=== PATIENT | female | born 1975 | race Caucasian/White ===

== ENCOUNTER → 2019-01-24 08:23 | Outpatient (CLI) | payer OTHER, SELFPAY ==
[2019-01-24 09:20] LABS: Add Manual Diff / Slide Review NO; Basophils Absolute Auto 0 /uL (0-100); Basophils Percent Auto 0.7 % (0-2); Eosinophils Absolute Auto 100 /uL (0-450); Eosinophils Percent Auto 1.2 % (2-4); Hematocrit 41.9 % (36-46); Hemoglobin 13.9 g/dL (12.0-16.0); Lymphocytes Absolute Auto 2000 /uL (1100-4500); Lymphocytes Percent Auto 34.5 % (25-40); Mean Corpuscular HGB Conc 33.2 % (30-36); Mean Corpuscular Hemoglobin 31.9 PG (26-34); Mean Corpuscular Volume 96.1 fL (80-100); Monocytes Absolute Auto 500 /uL (0-900); Monocytes Percent Auto 8.7 % (3-14); Neutrophils Absolute Auto 3100 /uL (1500-7000); Neutrophils Percent Auto 54.9 % (50-75); Platelet Count 283 X10^3/uL (150-400); Red Blood Cell Count 4.37 X10^6/uL (4.0-5.2); Red Cell Distribution Width 13.3 % (11.6-14.8); White Blood Cell Count 5.7 X10^3/uL (4.5-11.0)
[2019-01-24 09:49] LABS: Alanine Aminotransferase 26 IU/L (9-52); Albumin 4.3 g/dL (3.5-5.0); Albumin Globulin Ratio 1.4 (1.0-2.8); Alkaline Phosphatase 47 U/L (38-126); Aspartate Aminotransferase 23 IU/L (14-36); BUN Creatinine Ratio 25.7 (6-22); Bilirubin Total 0.5 mg/dL (0.2-1.3); Blood Urea Nitrogen 18 mg/dL (7-17); Calcium 8.8 mg/dL (8.4-10.2); Carbon Dioxide 28 mmol/L (22-32); Chloride 101 mmol/L (98-107); Cholesterol 199 mg/dL (140-199); Estimated Glomerular Filt Rate > 60.0 mL/min (>60); Globulin 3.1 g/dL (1.7-4.1); Glucose 97 mg/dL (70-100); HDL Cholesterol 57 mg/dL (40-60); HEMOLYSIS < 15 (0-50); LDL Cholesterol Calculated 124 mg/dL (<100); Potassium 4.4 mmol/L (3.4-5.1); Sodium 138 mmol/L (137-145); Total Protein 7.4 g/dL (6.3-8.2); Triglycerides 92 mg/dL (35-150)
[2019-01-24 10:18] LABS: TSH w/ Reflex to FT4 2.24 uIU/mL (0.47-4.68)
== END ==
PROVIDERS: PCP Family Medicine; Visit Provider Family Medicine
DX: Z01.419 Encounter for gynecological examination (general) (routine) without abnormal findings (principal); Z13.6 Encounter for screening for cardiovascular disorders; Z00.00 Encounter for general adult medical examination without abnormal findings
CPT/HCPCS: 36415; 80053; 80061; 84443; 85025

== ENCOUNTER → 2019-01-25 09:06 | Outpatient (CLI) | payer OTHER, SELFPAY ==
--- NOTE | 2019-01-25 | DI.MG.S_ITS ---
BILATERAL DIGITAL SCREENING MAMMOGRAM 3D/2D WITH CAD: 01/25/2019 CLINICAL: Routine screening. Family history of breast cancer. Comparison is made to exams dated: 01/21/2018 mammogram, 01/13/2017 mammogram, and 12/05/2015 mammogram - [facility]. The tissue of both breasts is heterogeneously dense. This may lower the sensitivity of mammography. Current study was also evaluated with a Computer Aided Detection (CAD) system. No significant masses, calcifications, or other findings are seen in either breast. There has been no significant interval change. IMPRESSION: NEGATIVE There is no mammographic evidence of malignancy. A 1 year screening mammogram is recommended. This exam was interpreted at Station ID: [id number]. NOTE: For mammograms, a report in lay terms will be sent to the patient. Approximately 15% of breast malignancies will not be visualized mammographically. In the management of a palpable breast mass, a negative mammogram must not discourage biopsy of a clinically suspicious lesion. Electronically Signed By: David ered/barak:01/26/2019 08:00:53 letter sent: Normal Exam ACR BI-RADS Category 1: Negative 3341F
== END ==
PROVIDERS: PCP Family Medicine; Visit Provider Family Medicine
DX: Z12.31 Encounter for screening mammogram for malignant neoplasm of breast (principal); Z80.3 Family history of malignant neoplasm of breast
CPT/HCPCS: 77063; 77067

== ENCOUNTER 2019-11-09 18:15 | Emergency (ER) | payer OTHER, BC, SELFPAY ==
[2019-11-09 18:22] VITALS: BP 169/98; PULSE 85; RESP 18; TEMP 36.4; O2SAT 99
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
[2019-11-09] MEDS: KETOROLAC 60 MG/2 ML VIAL 30 MG IM (20:05)
[2019-11-09 20:13] VITALS: BP 145/100; PULSE 79; O2SAT 97
== END 2019-11-09 20:14 | disposition home or self-care (01) ==
PROVIDERS: Emergency Provider Emergency Medicine; PCP Family Medicine
DX: S16.1XXA Strain of muscle, fascia and tendon at neck level, initial encounter (principal); S13.4XXA Sprain of ligaments of cervical spine, initial encounter; M25.512 Pain in left shoulder; M62.830 Muscle spasm of back; V89.2XXA Person injured in unspecified motor-vehicle accident, traffic, initial encounter
CPT/HCPCS: 96372; 99282; 99283; J1885

== ENCOUNTER → 2020-06-05 17:01 | Outpatient (CLI) | payer OTHER, SELFPAY ==
--- NOTE | 2020-06-05 | DI.MG.S_ITS ---
BILATERAL DIGITAL SCREENING MAMMOGRAM 3D/2D WITH CAD: 06/05/2020 CLINICAL: Routine screening. Family history of breast cancer. Comparison is made to exams dated: 01/25/2019 mammogram, 01/21/2018 mammogram, and 01/13/2017 mammogram - [facility]. The tissue of both breasts is heterogeneously dense. This may lower the sensitivity of mammography. Current study was also evaluated with a Computer Aided Detection (CAD) system. No significant masses, calcifications, or other findings are seen in either breast. There has been no significant interval change. IMPRESSION: NEGATIVE There is no mammographic evidence of malignancy. A 1 year screening mammogram is recommended. This exam was interpreted at Station ID: [id number]. NOTE: For mammograms, a report in lay terms will be sent to the patient. Approximately 15% of breast malignancies will not be visualized mammographically. In the management of a palpable breast mass, a negative mammogram must not discourage biopsy of a clinically suspicious lesion. Electronically Signed By: Cory molina/barak:06/06/2020 08:13:24 letter sent: Normal Exam ACR BI-RADS Category 1: Negative 3341F
== END ==
PROVIDERS: PCP Family Medicine; Referring Provider Family Medicine; Visit Provider Family Medicine
DX: Z12.31 Encounter for screening mammogram for malignant neoplasm of breast (principal); Z80.3 Family history of malignant neoplasm of breast
CPT/HCPCS: 77063; 77067

== ENCOUNTER → 2021-03-15 08:49 | Outpatient (CLI) | payer OTHER, SELFPAY ==
[2021-03-15 09:58] LABS: Add Manual Diff / Slide Review NO; Basophils Absolute Auto 0 /uL (0-100); Basophils Percent Auto 0.5 % (0-2); Eosinophils Absolute Auto 100 /uL (0-450); Eosinophils Percent Auto 1.5 % (2-4); Hematocrit 40.3 % (36-46); Hemoglobin 13.5 g/dL (12.0-16.0); Lymphocytes Absolute Auto 2100 /uL (1100-4500); Lymphocytes Percent Auto 34.9 % (25-40); Mean Corpuscular HGB Conc 33.6 % (30-36); Mean Corpuscular Hemoglobin 31.7 PG (26-34); Mean Corpuscular Volume 94.4 fL (80-100); Monocytes Absolute Auto 400 /uL (0-900); Monocytes Percent Auto 7.3 % (3-14); Neutrophils Absolute Auto 3400 /uL (1500-7000); Neutrophils Percent Auto 55.8 % (50-75); Platelet Count 261 X10^3/uL (150-400); Red Blood Cell Count 4.27 X10^6/uL (4.0-5.2); Red Cell Distribution Width 13.4 % (11.6-14.8); White Blood Cell Count 6.2 X10^3/uL (4.5-11.0)
[2021-03-15 10:50] LABS: Alanine Aminotransferase 19 IU/L (<35); Albumin Globulin Ratio 1.3 (1.0-2.8); Alkaline Phosphatase 60 U/L (38-126); Aspartate Aminotransferase 24 IU/L (14-36); Bilirubin Total 0.3 mg/dL (0.2-1.3); Blood Urea Nitrogen 20 mg/dL (7-17); Carbon Dioxide 27 mmol/L (22-32); Chloride 105 mmol/L (98-107); Cholesterol 203 mg/dL (140-199); Estimated Glomerular Filt Rate > 60.0 mL/min (>60); Globulin 3.2 g/dL (1.7-4.1); Glucose 109 mg/dL (70-100); HDL Cholesterol 54 mg/dL (40-60); HEMOLYSIS < 15 (0-50); LDL Cholesterol Calculated 132 mg/dL (<100); Potassium 4.2 mmol/L (3.4-5.1); Sodium 138 mmol/L (137-145); Total Protein 7.2 g/dL (6.3-8.2); Triglycerides 87 mg/dL (35-150)
[2021-03-15 11:38] LABS: TSH w/ Reflex to FT4 2.04 uIU/mL (0.47-4.68)
== END ==
PROVIDERS: PCP Family Medicine; Referring Provider Family Medicine; Visit Provider Family Medicine
DX: I10 Essential (primary) hypertension (principal)
CPT/HCPCS: 36415; 80053; 80061; 84443; 85025

== ENCOUNTER → 2021-06-25 11:24 | Outpatient (CLI) | payer OTHER, SELFPAY ==
--- NOTE | 2021-06-25 11:26 | DI.MG.S_ITS ---
BILATERAL DIGITAL SCREENING MAMMOGRAM 3D/2D WITH CAD: 06/25/2021 CLINICAL: Routine screening. Family history of breast cancer. Comparison is made to exams dated: 06/05/2020 mammogram, 01/25/2019 mammogram, and 01/21/2018 mammogram - [facility]. The tissue of both breasts is heterogeneously dense. This may lower the sensitivity of mammography. Current study was also evaluated with a Computer Aided Detection (CAD) system. No significant masses, calcifications, or other findings are seen in either breast. There has been no significant interval change. IMPRESSION: NEGATIVE There is no mammographic evidence of malignancy. A 1 year screening mammogram is recommended. This exam was interpreted at Station ID: [id number]. NOTE: For mammograms, a report in lay terms will be sent to the patient. Approximately 15% of breast malignancies will not be visualized mammographically. In the management of a palpable breast mass, a negative mammogram must not discourage biopsy of a clinically suspicious lesion. Electronically Signed By: Cory molina/barak:06/25/2021 12:03:06 letter sent: Normal Exam ACR BI-RADS Category 1: Negative 3341F
== END ==
PROVIDERS: PCP Family Medicine; Referring Provider Family Medicine; Visit Provider Family Medicine
DX: Z12.31 Encounter for screening mammogram for malignant neoplasm of breast (principal); Z80.3 Family history of malignant neoplasm of breast
CPT/HCPCS: 77063; 77067

== ENCOUNTER → 2021-09-23 11:14 | Outpatient (ROUT) | payer OTHER, SELFPAY ==
[2021-09-23 14:21] LABS: COVID19 -Nasal RAPID Negative (Negative)
== END ==
PROVIDERS: PCP Family Medicine; Visit Provider Family Medicine
DX: Z20.822 Contact with and (suspected) exposure to COVID-19 (principal)
CPT/HCPCS: 87635

== ENCOUNTER → 2022-07-23 07:40 | Outpatient (CLI) | payer OTHER, SELFPAY ==
--- NOTE | 2022-07-23 | DI.MG.S_ITS ---
BILATERAL DIGITAL SCREENING MAMMOGRAM 3D/2D WITH CAD: 07/23/2022 CLINICAL: Routine screening. Family history of breast cancer. Comparison is made to exams dated: 06/25/2021 mammogram, 06/05/2020 mammogram, and 01/25/2019 mammogram - [facility]. Both breasts are heterogeneously dense, which may obscure small masses (category c / 51-75% glandular tissue). Current study was also evaluated with a Computer Aided Detection (CAD) system. No significant masses, calcifications, or other findings are seen in either breast. There has been no significant interval change. IMPRESSION: NEGATIVE There is no mammographic evidence of malignancy. A 1 year screening mammogram is recommended. Based on Tyrer-Cuzick model (a risk assessment model), the patient's lifetime risk is 35.5% and her 10 year risk is 9.3%. If a patient has an elevated risk, a more comprehensive evaluation should be considered and/or a referral to a genetic counselor. The [place] [employer], [employer], and NCCN Guidelines advise the consideration of Breast MRI as an adjunct to screening mammography in patients whose Lifetime risk to develop breast cancer is 20% or higher. This exam was interpreted at Station ID: [id number]. NOTE: For mammograms, a report in lay terms will be sent to the patient. Approximately 15% of breast malignancies will not be visualized mammographically. In the management of a palpable breast mass, a negative mammogram must not discourage biopsy of a clinically suspicious lesion. Electronically Signed By: Lowell dillard/barak:07/24/2022 08:39:59 letter sent: Normal Exam ACR BI-RADS Category 1: Negative 3341F
== END ==
PROVIDERS: PCP Family Medicine; Referring Provider Family Medicine; Visit Provider Family Medicine
DX: Z12.31 Encounter for screening mammogram for malignant neoplasm of breast (principal); Z80.3 Family history of malignant neoplasm of breast
CPT/HCPCS: 77063; 77067

== ENCOUNTER → 2022-12-10 08:41 | Outpatient (CLI) | payer OTHER, SELFPAY ==
--- NOTE | 2022-12-10 | DI.US.S_ITS ---
PROCEDURE: US PELVIC COMPLETE INDICATIONS: PELVIC MASS TECHNIQUE: Real-time scanning was performed of the pelvic organs, with image documentation. Additional endovaginal scanning was necessary due to incomplete visualization of the adnexal and endometrial structures by transabdominal scanning. COMPARISON: None. FINDINGS: Uterus: Uterus is retroverted and prominent in size at 10.2 x 6.3 x 8.5 cm. The myometrium is mildly heterogeneous. Two fibroids visualized as follows: -right anterior uterine body, intramural: 5.5 x 4.4 x 4.8 centimeters. -right anterior uterine body, intramural: 2.4 x 2.2 x 2.2 centimeters. The endometrium measures 4 mm combined thickness. Small amount of fluid present in the uterine cavity. Possible endometrial polyp measuring 8 millimeters. Ovaries: Both ovaries are not visualized, likely due to overlying bowel gas. No adnexal mass visualized. Other: No pathologic free abdominal or pelvic fluid. IMPRESSION: 1. Two uterine fibroids are visualized, largest measuring 5.5 centimeters. 2. Heterogeneous appearance of the myometrium may be related to the presence of fibroids but adenomyosis is also possible. MRI of the pelvis could be obtained for further evaluation if clinically indicated. 3. Possible endometrial polyp measuring approximately 8 millimeters. 4. The ovaries were not visualized, likely obscured by bowel gas. No adnexal mass visualized. We strive to produce accurate, complete, and clear reports of imaging services. To assist us in improving patient care, this report was composed using standard report templates and voice recognition software. Therefore, it may contain abnormal punctuation, insertions and/or omissions. Occasional wrong-word or sound-alike substitutions may occur. Though we review the report and make efforts to correct it, we do recommend that the report be read carefully in proper context to recognize any text inaccuracies. Dictated by: Cory Skinner M.D. on 12/10/2022 at 10:39 Approved by: Cory Skinner M.D. on 12/10/2022 at 10:44
== END ==
PROVIDERS: PCP Family Medicine; Referring Provider Family Medicine; Visit Provider Family Medicine
DX: R19.09 Other intra-abdominal and pelvic swelling, mass and lump (principal); D25.1 Intramural leiomyoma of uterus
CPT/HCPCS: 76830; 76856

== ENCOUNTER → 2023-01-07 15:34 | Outpatient (CLI) | payer OTHER, SELFPAY | PROVIDERS: PCP Family Medicine; Referring Provider Family Medicine; Visit Provider Family Medicine | DX: Z12.39 Encounter for other screening for malignant neoplasm of breast (principal); Z80.3 Family history of malignant neoplasm of breast | CPT/HCPCS: 36415; 81162 ==

== ENCOUNTER 2023-03-15 13:23 | Day surgery (SDC) | payer OTHER, SELFPAY ==
[2023-03-15] VITALS (11 sets, daily range): BP systolic 137–172; BP diastolic 71–102; PULSE 74–88; RESP 12–22; TEMP 36.3–36.9; O2SAT 90–100; BMI 29.9
--- NOTE | 2023-03-15 | PATH_ITS ---
[facility] Accession Number: [id number] No. of containers..01 Tissue . 01 Material submitted: . uterus - UTERUS AND BILATERAL FALLOPIAN TUBES . 01 Diagnosis: Uterus, Cervix, Right and Left Fallopian Tubes, Hysterectomy and Bilateral Salpingectomy: Cervix: No significant pathologic abnormalities. Endometrium: Disordered proliferative. Myometrium: Leiomyomata without significant atypia and adenomyosis. Fallopian tubes: Focal involvement by endometriosis. MRV 03/18/2023 1639 Local . 01 Electronically signed: . Leanna Hidalgo MD, Pathologist NPI- [id number] . 01 Gross description: . The specimen is received in formalin labeled with the patient's name, , and uterus, bilateral fallopian tubes, and consists of a fragmented uterus (264 grams, 13.2 x 13.2 x 5.5 cm in aggregate), with cervix (3.7 x 3.1 cm), two unoriented, fimbriated fallopian tubes (6.2 x 0.8 cm and 5.5 x 0.9 cm respectively), and no additional adnexa. The serosa is maynard and smooth with no evidence of adhesion or hemorrhage identified. The ectocervix is pink-maynard and finely granular with a patulous cervical os measuring 0.4 cm in diameter. The paracervical margin is inked blue. The attached endocervical canal has maynard herringbone mucosa and measures 4.3 cm in length. The endometrium is red-brown and velvety and averages 0.2 cm thick. The myometrium is pink-maynard and trabecular with multiple well-circumscribed white whorled nodules measuring up to 1.8 cm in greatest dimension with no hemorrhage or necrosis identified. . The longer fallopian tube has congested smooth serosa with no cystic structures identified and sectioning reveals an unremarkable stellate lumen. The shorter fallopian tube has congested smooth serosa with no cystic structures identified and sectioning reveals an unremarkable stellate lumen. . Anal[employer] Research Program Manager sections are submitted as follows: A1: Endometrium. A2-A3: Analytical Research Program Manager cervix. A4: Nodules. A5: Serosa. A6: Longer fallopian tube to include one-half of bisected fimbriae and cross-sections. A7: Modale fallopian tube to include one-half of bisected fimbriae and cross-sections. ([id number]) /ADAN 03/16/2023 0857 Local . 01 Pathologist provided ICD-10: D25.9, R10.2 . 01 CPT . 549514 Specimen Comment: A courtesy copy of this report has been sent to [phone] Performed at: 01 [facility] [address] [place] [address], [place], [place] [id number] MD David Barger MD Phone: [phone]
--- NOTE | 2023-03-15 13:32 | PM.GYNHP.1 ---
History of Present Illness History of Present Illness Reason for admission: vaginal bleeding Narrative: Rivka is a 47 yo A1, LMP 02/28/2023 who presented in January 2023 discuss hysterectomy.? We have discussed her symptoms previously via a telehealth visit but this was our first gbwb-[id number] encounter.? She experienced normal menarche and has had regular predictable periods until about a year ago when she had her last normal.? Since then she is had episodic bleeding every 4-6 months.? She also began developing perimenopausal symptoms about 2 years ago.? She has ongoing symptoms of pelvic pressure especially when she lays on her back or does yoga poses, along with right-sided low back discomfort unrelieved by manipulation or exercise.? Patient also is having irregular menstrual cycles with no intermenstrual bleeding and she denies menopausal symptoms at this point.? Pap smears have always been normal with her most recent Pap in November 2022.? Patient has never had endometrial biopsy performed.? Patient has never had abdominal surgery.? Recent?FSH level is consistent with menopause (55.1) and TSH is normal.? Patient had a recent pelvic ultrasound performed 12/10/2022 which showed: PROCEDURE:? US PELVIC COMPLETE ? INDICATIONS:? PELVIC MASS ? TECHNIQUE:? Real-time scanning was performed of the pelvic organs, with image documentation.? Additional endovaginal scanning was necessary due to incomplete visualization of the adnexal and endometrial structures by transabdominal scanning.? ? COMPARISON:? None. ? FINDINGS:? ?? Uterus:? Uterus is retroverted and prominent in size at 10.2 x 6.3 x 8.5 cm. The myometrium is mildly heterogeneous.? Two fibroids visualized as follows: -right anterior uterine body, intramural:? 5.5 x 4.4 x 4.8 centimeters. -right anterior uterine body, intramural:? 2.4 x 2.2 x 2.2 centimeters. ? The endometrium measures 4 mm combined thickness.? Small amount of fluid present in the uterine cavity.? Possible endometrial polyp measuring 8 millimeters. ? Ovaries:? Both ovaries are not visualized, likely due to overlying bowel gas.? No adnexal mass visualized. ? Other:? No pathologic free abdominal or pelvic fluid.? ? IMPRESSION:? 1. Two uterine fibroids are visualized, largest measuring 5.5 centimeters. 2. Heterogeneous appearance of the myometrium may be related to the presence of fibroids but adenomyosis is also possible.? MRI of the pelvis could be obtained for further evaluation if clinically indicated. 3. Possible endometrial polyp measuring approximately 8 millimeters. 4. The ovaries were not visualized, likely obscured by bowel gas.? No adnexal mass visualized.? We had an extended discussion regarding options for evaluation, and management of her abnormal bleeding and uterine fibroids.? Based on our discussion and our prior discussion, patient desires to proceed with total laparoscopic hysterectomy with bilateral salpingectomy.? Patient advised that endometrial biopsy may be required by her insurance company but given that her endometrial stripe is only 4 mm in combined thickness and the vast majority of endometrial polyps are benign, endometrial sampling deferred at this time. She presents today for her scheduled surgery. [facility] Medical History (Updated 03/12/23 @ 08:47 by Sia Mujica RN) History of COVID-19 (~2021) HTN (hypertension) Family History (Updated 01/06/17 @ 00:00 by Conversion Provider) Mother Breast cancer Hypertension Congestive heart failure Social History marital status: household members: spouse Smoking Status: Never smoker alcohol intake: current substance use type: does not use Meds Home Medications and Allergies Home Medications Medication Instructions Recorded Confirmed Type metoprolol succinate 25 mg 25 mg PO DAILY 03/20/21 01/27/23 History tablet,extended release 24 hr Allergies Allergy/AdvReac Type Severity Reaction Status Date / Time amoxicillin Allergy Intermediate hives Verified 01/27/23 15:14 Review of Systems Review of Systems Narrative: Problem-specific ROS positives included in HPI Exam Const General: cooperative and comfortable Nutritional Appearance: average body habitus Orientation: alert and oriented x3 HENMT Head: normal to inspection, atraumatic and abrasion Ears: hearing grossly normal bilaterally Face and sinus: face symmetric Eyes General: appearance normal, both eyes and all related structures Conjunctivae: conjunctivae normal Sclera: sclerae normal EOM: EOM intact bilaterally Neck Neck: normal visual inspection Resp Effort & Inspection: normal respiratory effort and able to speak in complete sentences Auscultation: clear to auscultation bilaterally Cardio Rate: regular rate Rhythm: regular rhythm Heart Sounds: S1 normal, S2 normal and no murmurs GI Inspection: normal to inspection Palpation: soft and no hepatosplenomegaly External Female Exam: other (No significant bleeding noted) Other: External Female Exam: normal external appearance (Normal for age and parity), no lesions and No lesion Urethra: no lesions Speculum Exam - Vagina: normal appearance of the vagina, vagina atrophic, not erythematous and no lesions Speculum Exam - Cervix: normal appearance of the cervix, cervical os open, no lesions and no masses Bimanual Exam- Vagina & Uterus: enlarged (Eight weeks size), nodular (Consistent with myomas) and tender (Mild, diffuse) Bimanual Exam- Adnexa, other: normal adnexae, adnexae mobile, no masses and non-tender OB/External & Speculum: cervical os open Speculum Exam: cervical os open Extrem General: no calf tenderness Psych Appearance: grossly normal Mental Status: mental status grossly normal Speech and Movement: speech and movement normal Mood: congruent mood Affect: normal affect Attitude: cooperative Thought Process: normal Thought Content: normal Judgment: judgment good Assessment & Plan Assessment and plan (1) Uterine fibroid: Qualifiers: Uterine leiomyoma location: intramural and submucous Qualified Code(s): D25.1 - Intramural leiomyoma of uterus; D25.0 - Submucous leiomyoma of uterus Status: Acute (2) Pelvic pressure in female: Status: Acute (3) Perimenopausal menorrhagia: Status: Acute (4) Endometrial polyp: Status: Acute Assessment & Plan narrative: Patient counseled regarding alternatives, risks, benefits, and potential complications associated with total laparoscopic hysterectomy with bilateral salpingectomy. With full understanding of the above, a written consent was executed, signed, and witnessed this date. Time Spent With Patient Time with patient: less than 30 minutes
--- NOTE | 2023-03-15 13:47 | PM.PREOP ---
Pre-operative Note COVID-19 COVID-19 status: Negative Result date/Date tested (Pos, Neg/Pending): 03/15/23 Criteria for continued procedure: Non-surgical alternatives not available or appropriate per current SOC Interval Note History & Physical reviewed/Exam performed by Physician: Yes Changes to H&P: No
[2023-03-15] MEDS: LACTATED RINGERS 1,000 ML 84 ML IV (14:11)
[2023-03-15 14:26] LABS: COVID19 -Nasal RAPID Negative (Negative)
[2023-03-15] MEDS: CEFAZOLIN 2 GM/100 ML PREMIX 100 ML IV (14:45)
--- NOTE | 2023-03-15 15:04 | SUR.OPER ---
Lithotomy on padded OR bed. Rodeo Pad Positioner under torso. Head on pillow, arms padded and tucked at sides. Legs secured in padded yellow fins stirrups.
[2023-03-15] MEDS: BUPIVACAINE 0.5% (PF) 10 ML VIAL 30 ML INJ (15:15)
[2023-03-15] MEDS: ROPIVACAINE 0.2% PF 2 MG/ML 20ML AMP 20 ML INJ (15:16)
--- NOTE | 2023-03-15 16:33 | P.OP_ITS ---
Operative Date/Time/Diagnoses Date of procedure: 03/15/23 Time of procedure: 15:10 Pre-op diagnosis: Perimenopausal menorrhagia Pelvic pain/pressure Uterine fibroids Post-op diagnosis: same Procedure & Clinicians Procedure: Procedures Operation Date: 03/15/23 14:30 Actual Procedure Side Surgeon p Total Laparoscopic Hysterectomy w/ bilateral salpingectomy Michael Mosley MD Indications: Rivka is a 47 yo A1, LMP 02/28/2023 who presented in January 2023 discuss hysterectomy.? We have discussed her symptoms previously via a telehealth visit but this was our first nadn-yg-wcuk encounter.? She experienced normal menarche and has had regular predictable periods until about a year ago when she had her last normal.? Since then she is had episodic bleeding every 4-6 months.? She also began developing perimenopausal symptoms about 2 years ago.? She has ongoing symptoms of pelvic pressure especially when she lays on her back or does yoga poses, along with right-sided low back discomfort unrelieved by manipulation or exercise.? Patient also is having irregular menstrual cycles with no intermenstrual bleeding and she denies menopausal symptoms at this point.? Pap smears have always been normal with her most recent Pap in November 2022.? Patient has never had endometrial biopsy performed.? Patient has never had abdominal surgery.? Recent?FSH level is consistent with menopause (55.1) and TSH is normal.? Patient had a recent pelvic ultrasound performed 12/10/2022 which showed: PROCEDURE:? US PELVIC COMPLETE ? INDICATIONS:? PELVIC MASS ? TECHNIQUE:? Real-time scanning was performed of the pelvic organs, with image documentation.? Additional endovaginal scanning was necessary due to incomplete visualization of the adnexal and endometrial structures by transabdominal scanning.? ? COMPARISON:? None. ? FINDINGS:? ?? Uterus:? Uterus is retroverted and prominent in size at 10.2 x 6.3 x 8.5 cm. The myometrium is mildly heterogeneous.? Two fibroids visualized as follows: -right anterior uterine body, intramural:? 5.5 x 4.4 x 4.8 centimeters. -right anterior uterine body, intramural:? 2.4 x 2.2 x 2.2 centimeters. ? The endometrium measures 4 mm combined thickness.? Small amount of fluid present in the uterine cavity.? Possible endometrial polyp measuring 8 millimeters. ? Ovaries:? Both ovaries are not visualized, likely due to overlying bowel gas.? No adnexal mass visualized. ? Other:? No pathologic free abdominal or pelvic fluid.? ? IMPRESSION:? 1. Two uterine fibroids are visualized, largest measuring 5.5 centimeters. 2. Heterogeneous appearance of the myometrium may be related to the presence of fibroids but adenomyosis is also possible.? MRI of the pelvis could be obtained for further evaluation if clinically indicated. 3. Possible endometrial polyp measuring approximately 8 millimeters. 4. The ovaries were not visualized, likely obscured by bowel gas.? No adnexal mass visualized.? We had an extended discussion regarding options for evaluation, and management of her abnormal bleeding and uterine fibroids.? Based on our discussion and our prior discussion, patient desires to proceed with total laparoscopic hysterectomy with bilateral salpingectomy.? Patient advised that endometrial biopsy may be required by her insurance company but given that her endometrial stripe is only 4 mm in combined thickness and the vast majority of endometrial polyps are benign, endometrial sampling deferred at this time.? She presents today for her scheduled surgery. Surgeon: Michael Mosley Chief Operator Reformer: Nella Contreras Anesthesia Type: General Operative Notes Closure Type: primary Specimen(s): left tube, right tube and uterus Applied: catheter Estimated blood loss (mL): 75 Blood products transfused: none Procedure in detail: With the patient in modified dorsal lithotomy position preparations were made by prepping and draping the patient in usual manner for vaginal surgery and insertion of Ramirez catheter. A pre-surgical time-out was then taken in accordance with [facility] policy. A bivalve speculum was then placed in the vagina and the cervix visualized. The anterior lip of the cervix was then grasped with a single-tooth tenaculum. The uterus was sounded to 9 cm, the endocervical canal dilated slightly, and a VCare uterine manipulator with a large colpotomy cup was placed. The umbilicus was then infiltrated with 0.5% Marcaine with epinephrine. A 1 cm umbilical incision was made transversely and a Veress needle was used to insufflate the abdominal cavity with carbon dioxide. Once the abdomen was appropriately insufflated, a 5 mm trocar and sleeve were then placed through the umbilical incision. The scope was placed through the trocar and the initial assessment of the intra-abdominal contents carried out. A 2nd and 3rd 5 mm port was then placed 1st in the right mid quadrant from then the left mid quadrant by infiltration of the skin and subcutaneous tissues, a 1 cm transverse incision and insertion of the 5 mm bladeless port. Using a 3 puncture technique, the abdomen and pelvis were inspected laparoscopy and photographically documented. Uterus is mobilized with the VCare manipulator and attention turned to the left adnexa. The distal tube was then grasped and the fimbria varicose divided after coagulation with the PowerSeal device. The dissection was then carried out toward the cornua and the fallopian tube amputated. The tube was removed through a 5 mm port and dissection was then carried down using the PowerSeal device so as to divide the utero-ovarian ligament and the round ligament with blunt and sharp dissection of the broad down to the level of the uterine artery. The uterine artery was then skeletonized after development of a bladder flap, coagulated, and divided. Once hemostasis was assured on the left side attention was turned to the right and the tube, utero-ovarian ligament, round ligament, and broad ligament were dissected in a fashion exactly the same as it had been on the left. The right uterine artery was then visualized after skeletonization and coagulated and divided. The uterus was seen to andrew after coagulation of both your arteries and the cup was identified through the vaginal muscularis at its insertion with the body of the cervix. Circumferential excision of the vaginal cup was accomplished without difficulty using monopolar current and the uterus mobilized. The uterus was then removed through the vagina and the vaginal cuff closed [id number] with a series of 0 Vicryl [id number] stitches. Hemostasis was excellent, the abdomen was re-insufflated, and the pelvis inspected laparoscopically. The pelvis was inspected for any abnormality or bleeding, and the ureters were each seen to be peristalsing freely. With complete hemostasis assured, the pneumoperitoneum was vented and the ports removed. All of the 5 mm ports were then closed with 4-0 Monocryl on the skin using inverted interrupted sutures. Skin glue was placed and after the glue was dried, an appropriate dressing was applied. The case was then terminated, the patient awakened, and then transferred to PACU after having tolerated the procedure well. Complications: none Post-operative Condition: stable Disposition: PACU Plan for aftercare: Recovery in ambulatory surgery in discharge home later today if pain is under control and she is tolerating oral intake well.
[2023-03-15] MEDS: LACTATED RINGERS 1,000 ML 42 ML IV (16:34)
[2023-03-15] MEDS: ONDANSETRON 4 MG/2 ML INJ IV (16:51)
[2023-03-15] MEDS: METOCLOPRAMIDE 10 MG/2 ML INJ IV (17:08)
[2023-03-15] MEDS: OXYCODONE/ACETAMINOPHEN 5/325 TABLET 1 TAB PO (17:29)
== END 2023-03-15 18:30 | disposition home or self-care (01) ==
LOC: OR 13:24 → AC 13:24
PROVIDERS: PCP Family Medicine; Referring Provider Obstetrics & Gynecology; Visit Provider Obstetrics & Gynecology
PROC: 0UT94ZZ Resection of Uterus, Percutaneous Endoscopic Approach (ICD-10-PCS; CPT 58571; principal; 2023-03-15 14:30)
DX: N92.4 Excessive bleeding in the premenopausal period (principal); Z20.822 Contact with and (suspected) exposure to COVID-19; D25.1 Intramural leiomyoma of uterus; N80.203 Endometriosis of bilateral fallopian tubes, unspecified depth
CPT/HCPCS: 58571; 87635; C9803; J0690; J1100; J1885; J2250; J2405; J2704; J2765; J2795; J3010

== ENCOUNTER 2023-05-20 06:33 | Emergency (ER) | payer OTHER, SELFPAY ==
[2023-05-20] VITALS (15 sets, daily range): BP systolic 147–185; BP diastolic 92–108; PULSE 81–101; RESP 16–25; TEMP 36.4; O2SAT 95–99; BMI 29.0
--- NOTE | 2023-05-20 06:44 | DI.RAD.S_ITS ---
PROCEDURE: XR CHEST 1V INDICATIONS: chest pain TECHNIQUE: One view of the chest was acquired. COMPARISON: [facility], CT, CT CHEST W CON, 12/16/2022, 13:19. [facility], CR, XR CHEST 2V, 11/23/2022, 10:47. FINDINGS: Surgical changes and devices: None. Lungs and pleura: Subtle left perihilar opacity. No pleural effusions or pneumothorax. Mediastinum: Mediastinal contours appear unchanged. Heart size is normal. Bones and chest wall: No suspicious bony lesions. Overlying soft tissues appear unremarkable. IMPRESSION: Subtle left perihilar opacity. This could be due to atelectasis or pneumonia. This report is concordant with the overnight preliminary interpretation. Dictated by: Tay Romo M.D. on 05/20/2023 at 8:01 Approved by: Tay Romo M.D. on 05/20/2023 at 8:03
--- NOTE | 2023-05-20 06:44 | DI.CT.S_ITS ---
PROCEDURE: CT HEAD/BRAIN WO CON INDICATIONS: sudden onset dizziness with blurred vision TECHNIQUE: Noncontrast 4.5 mm thick angled axial sections acquired from the foramen magnum to the vertex, with coronal and sagittal reformats. For radiation dose reduction, the following was used: automated exposure control, adjustment of mA and/or kV according to patient size. COMPARISON: [facility], CT, CT SINUS SCREEN WO CON, 04/14/2023, 13:56. FINDINGS: Image quality: Excellent. CSF spaces: Basal cisterns are patent. No extra-axial fluid collections. Ventricles are normal in size and shape. Brain: No midline shift. No intracranial masses or hemorrhage. Midline cyst at the occipital lobe measuring 0.7 cm, (5/18). -white matter interface is normal. Skull and face: Calvarium and visualized facial bones are intact, without suspicious lesions. Sinuses: Visualized sinuses and mastoids are clear. IMPRESSION: No acute intracranial abnormality. Midline cyst at the occipital lobe measuring 0.7 cm. MRI brain with contrast could be considered for further evaluation. Dictated by: Tay Romo M.D. on 05/20/2023 at 8:09 Approved by: Tay Room M.D. on 05/20/2023 at 8:14
[2023-05-20 07:01] LABS: Add Manual Diff / Slide Review NO; Basophils Absolute Auto 0 /uL (0-100); Basophils Percent Auto 0.5 % (0-2); Eosinophils Absolute Auto 100 /uL (0-450); Eosinophils Percent Auto 1.9 % (2-4); Hematocrit 41.1 % (36-46); Hemoglobin 13.9 g/dL (12.0-16.0); Lymphocytes Absolute Auto 2400 /uL (1100-4500); Lymphocytes Percent Auto 32.7 % (25-40); Mean Corpuscular Hemoglobin 31.4 PG (26-34); Mean Corpuscular Volume 92.6 fL (80-100); Monocytes Absolute Auto 700 /uL (0-900); Monocytes Percent Auto 9.1 % (3-14); Neutrophils Absolute Auto 4200 /uL (1500-7000); Neutrophils Percent Auto 55.8 % (50-75); Platelet Count 268 X10^3/uL (150-400); Red Blood Cell Count 4.43 X10^6/uL (4.0-5.2); Red Cell Distribution Width 13.3 % (11.6-14.8); White Blood Cell Count 7.4 X10^3/uL (4.5-11.0)
[2023-05-20 07:11] LABS: Prothrombin Time 11.5 SECONDS (10.1-12.7)
[2023-05-20 07:13] LABS: PTT Partial Thromboplastin Tim 29 SECONDS (26-36)
[2023-05-20 07:18] LABS: Alanine Aminotransferase 34 IU/L (<35); Albumin 4.4 g/dL (3.5-5.0); Albumin Globulin Ratio 1.4 (1.0-2.8); Alkaline Phosphatase 69 U/L (38-126); Aspartate Aminotransferase 33 IU/L (14-36); BUN Creatinine Ratio 25.4 (6-22); Bilirubin Total 0.5 mg/dL (0.2-1.3); Blood Urea Nitrogen 18 mg/dL (7-17); Calcium 8.5 mg/dL (8.4-10.2); Carbon Dioxide 28 mmol/L (22-32); Chloride 101 mmol/L (98-107); Creatine Kinase 76 U/L (30-135); Estimated Glomerular Filt Rate > 60 mL/min (>60); Globulin 3.2 g/dL (1.7-4.1); Glucose 105 mg/dL (70-100); HEMOLYSIS < 15 (0-50); Lipase 343 U/L (23-300); Magnesium 1.9 mg/dL (1.6-2.3); Potassium 3.6 mmol/L (3.4-5.1); Sodium 137 mmol/L (137-145); Total Protein 7.6 g/dL (6.3-8.2)
--- NOTE | 2023-05-20 07:23 | ED_ITS ---
HPI - Dizziness General Chief Complaint: Dizziness Stated Complaint: blurry vison, dizziness Time Seen by Provider: 05/20/23 07:18 Source: patient Mode of arrival: Ambulatory Limitations: no limitations History of Present Illness HPI Narrative: Patient was driving to work this morning, she suddenly developed dizziness about 6:15 a.m.. She would left temporal pressure with the dizziness. She pulled to the side of the road, she stopped driving. Symptoms started resolving after about 3 minutes. She proceeded to work. Disease had resolved but she did not feel well. She had no focal headache, visual changes, dysarthria or numbness or weakness. Her notes she did not speak to anyone when she entered the building, she reports she avoid talking cause she did not feel well. She would no chest pain, palpitations, or sensation of near-syncope. She is no cough or dyspnea. She would no nausea, no GI symptoms. She is not feel confused. There was no focal numbness or weakness. She is on metoprolol for hypertension. She is no history of CVA/TIA, arrhythmia or syncope. She denies recent illness. She is had no suggestive respiratory illness, cough, or fever. She is had no GI or complaints. 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 Family History Mother Breast cancer Hypertension Congestive heart failure Social History marital status: household members: spouse Smoking Status: Never smoker alcohol intake: current substance use type: does not use Smoking Status: Never smoker alcohol intake frequency: a few times a week Substance Use Type: does not use Exam Initial Vital Signs Initial Vital Signs: Vital Signs Pulse Rate 101 H 07/13/23 06:37 Blood Pressure 184/96 H 05/20/23 06:37 Const General: cooperative, healthy appearing, comfortable, well developed and well groomed Nutritional Appearance: average body habitus HENMT Head: normal to inspection and normocephalic Ears: TM's normal bilaterally Face and sinus: normal facial exam and sinuses nontender Mouth: oral mucosae normal Eyes General: Yes appearance normal, both eyes and all related structures Conjunctivae: conjunctivae normal Sclera: sclerae normal Pupils: PERRL EOM: EOM intact bilaterally Other: No visual field deficits. Neck Neck: normal visual inspection, No lymphadenopathy and No JVD Thyroid: thyroid normal Resp Effort & Inspection: normal respiratory effort Auscultation: clear to auscultation bilaterally Cardio Palpation: normal PMI Rate: regular rate Rhythm: regular rhythm Heart Sounds: S1 normal and S2 normal GI Inspection: normal to inspection Palpation: soft Auscultation: normal bowel sounds General: No CVA tenderness Back/Spine/Pelvis Back: normal to inspection and No back tenderness Skin General: no rashes or lesions noted Neuro General: patient alert, patient awake, patient oriented x3 and no focal motor deficits Scores NIH Stroke Scale Level of Conciousness: Alert, keenly responsive Ask month/age: Answers both questions correctly. Open/close eyes, close hand: Performs both tasks correctly Best gaze horizontal: Normal Visual rodriguez: No visual loss Facial palsy: Normal symetrical movement Left arm drift: No drift for full 10 sec Right arm drift: No drift for full 10 sec Left leg drift: No drift for full 5 sec Right leg drift: No drift for full 5 sec Limb ataxia: Absent Sensory on face/arms/legs: Normal, no sensory loss Best language: No aphasia, normal Dysarthria: Normal Extinction or inattention: No abnormality Total NIH Stroke scale score: 0 Course Course Course Narrative: The patient's clinical course was discussed with her PCM, Dr. Bower. The santiago ent is compliant with metoprolol for hypertension. Her systolic blood pressure was consistently 170-180 during her ER visit. Dr. Bower will interact with her about blood pressure management. The small cyst noted on head CT was discussed. It is anticipated MRI will be ordered. Patient is discharged home for follow up with her PCM. Orders Ordered: ED Orders 05/20/23 06:44 CT head/brain wo con Stat XR chest 1V Stat EKG-12 Lead Stat 05/20/23 06:50 Complete Blood Count AUTO DIFF Stat Comprehensive Metabolic Panel Stat Lipase Stat Magnesium Stat PTT Partial Thromboplastin Nile Stat Prothrombin Time INR Stat Troponin & CK Cardiac Panel Stat Discontinued Medications Aspirin (Aspirin 81 Mg Chew Tab) 324 mg PO NOW ONE Stop: 05/20/23 06:45 Last Admin: 05/20/23 07:37 Dose: Not Given Documented By: RB Vital Signs Vital signs: Vital Signs - 8 hr 05/20/23 06:45 05/20/23 06:37 05/20/23 06:37 Temperature 97.5 F L Pulse Rate 95 H 101 H Respiratory Rate 16 Blood Pressure 185/96 H 184/96 H Pulse Oximetry 98 Oxygen Delivery Method Room Air 05/20/23 06:45 05/20/23 07:00 05/20/23 07:18 Temperature Pulse Rate 96 H 91 H 99 H Respiratory Rate 23 19 Blood Pressure Pulse Oximetry 99 98 Oxygen Delivery Method 05/20/23 07:30 05/20/23 07:45 05/20/23 07:46 Temperature Pulse Rate 85 88 87 Respiratory Rate 21 Blood Pressure Pulse Oximetry 98 99 98 Oxygen Delivery Method 05/20/23 07:46 05/20/23 08:00 05/20/23 08:00 Temperature Pulse Rate 90 Respiratory Rate 21 Blood Pressure 159/97 H 175/101 H Pulse Oximetry 95 Oxygen Delivery Method 05/20/23 08:15 05/20/23 08:30 05/20/23 08:30 Temperature Pulse Rate 83 85 Respiratory Rate 19 16 Blood Pressure 176/108 H Pulse Oximetry 96 96 Oxygen Delivery Method 05/20/23 08:45 05/20/23 09:00 05/20/23 09:15 Temperature Pulse Rate 84 84 81 Respiratory Rate 20 25 H 21 Blood Pressure Pulse Oximetry 98 98 97 Oxygen Delivery Method MDM - Dizziness Lab Data 05/20/23 06:50 05/20/23 06:50 Labs: Lab Results 05/20/23 05/20/23 05/20/23 Range/Units 06:50 06:50 06:50 WBC 7.4 (4.5-11.0) X10^3/uL RBC 4.43 (4.0-5.2) X10^6/uL Hgb 13.9 (12.0-16.0) g/dL Hct 41.1 (36-46) % MCV 92.6 (80-100) fL MCH 31.4 (26-34) PG MCHC 34.0 (30-36) % RDW 13.3 (11.6-14.8) % Plt Count 268 (150-400) X10^3/uL Neut % (Auto) 55.8 (50-75) % Lymph % (Auto) 32.7 (25-40) % [place] % (Auto) 9.1 (3-14) % Eos % (Auto) 1.9 L (2-4) % Baso % (Auto) 0.5 (0-2) % Neut # (Auto) 4200 (2827-9949) /uL Lymph # (Auto) 2400 (0519-5471) /uL [place] # (Auto) 700 (0-900) /uL Eos # (Auto) 100 (0-450) /uL Baso # (Auto) 0 (0-100) /uL PT 11.5 (10.1-12.7) SECONDS INR 1.0 (0.9-1.3) APTT 29 (26-36) SECONDS Sodium 137 (137-145) mmol/L Potassium 3.6 (3.4-5.1) mmol/L Chloride 101 (98-107) mmol/L Carbon Dioxide 28 (22-32) mmol/L BUN 18 H (7-17) mg/dL Creatinine 0.71 (0.52-1.04) mg/dL Estimated GFR > 60 (>60) mL/min BUN/Creatinine Ratio 25.4 H (6-22) Glucose 105 H (70-100) mg/dL Calcium 8.5 (8.4-10.2) mg/dL Magnesium 1.9 (1.6-2.3) mg/dL Total Bilirubin 0.5 (0.2-1.3) mg/dL AST 33 (14-36) IU/L ALT 34 (<35) IU/L Alkaline Phosphatase 69 (38-126) U/L Total Creatine Kinase 76 (30-135) U/L Troponin I < 0.012 (0.01-0.034) ng/mL Total Protein 7.6 (6.3-8.2) g/dL Albumin 4.4 (3.5-5.0) g/dL Globulin 3.2 (1.7-4.1) g/dL Albumin/Globulin Ratio 1.4 (1.0-2.8) Lipase 343 H (23-300) U/L Imaging Data CT scan - head: Radiologist's Impression: [address] [address] [address] Scan Report Signed Patient: Lizett Adams MR#: [id number] : 1975 Acct:[id number] Age/Sex: 47 / F Date of Service: 05/20/23 Loc: ED Accession Number: [id number] ?? Procedure: CT head/brain wo con Ordering Provider: John Albarado MD PROCEDURE:? CT HEAD/BRAIN WO CON ? INDICATIONS:? sudden onset dizziness with blurred vision ? TECHNIQUE:? Noncontrast 4.5 mm thick angled axial sections acquired from the foramen magnum to the vertex, with coronal and sagittal reformats.? For radiation dose reduction, the following was used:? automated exposure control, adjustment of mA and/or kV according to patient size.? ? COMPARISON:? [facility], CT, CT SINUS SCREEN WO CON, 04/14/2023, 13:56. ? FINDINGS:? Image quality:? Excellent.? ? CSF spaces:? Basal cisterns are patent.? No extra-axial fluid collections.? Ventricles are normal in size and shape.? ? Brain:? No midline shift.? No intracranial masses or hemorrhage.? Midline cyst at the occipital lobe measuring 0.7 cm, (5).? -white matter interface is normal.? ? Skull and face:? Calvarium and visualized facial bones are intact, without suspicious lesions.? ? Sinuses:? Visualized sinuses and mastoids are clear.? ? IMPRESSION:? No acute intracranial abnormality. ? Midline cyst at the occipital lobe measuring 0.7 cm. ? MRI brain with contrast could be considered for further evaluation. ? ? Dictated by: Tay Romo M.D. on 05/20/2023 at 8:09 ? ? Approved by: Tay Romo M.D. on 05/20/2023 at 8:14?? Chest x-ray: Radiologist's Impression: 6 ? Provider NotesNurse/Allied HealthMedicationsDiagnostics History & ProblemsAdministrativeOther ClinicalWorkload Items SummaryActivityFlowsheetsHealth Mgmt Diagnostics Subcategory All Activity ??:?? All Time ??:?? All Subcategories Filter Laboratory Imaging Microbiology Pathology Blood Bank Tests Cardiovascular Other Specialty DATE TYPE STATUS REF RANGE/AUTHOR Hx Today 06:[address] Signed Call,Tay Today 06:44 Chest X-Ray Signed Call,Tay 12/10/22 00:00 Pelvis Ultrasound Signed Cory Skinner 07/23/22 00:00 Mammogram Screening Signed Lowell Palma 06/25/21 11:26 Mammogram Screening Signed Cory Camejo 06/05/20 00:00 Mammogram Screening Signed Cory Camejo 01/25/19 00:00 Mammogram Screening Addendum David Garcia Elizabeth A ED 47, F?1975 MRN#? [id number] REG ER,?Main ED??R11?? 167.64cm 81.647kg BMI: 29.1kg/m? Dizziness Acc#? [id number] Resus Status Not Ordered No Hx Avail Historical Visits Special Indicators No Data to Display Home Meds Not Confirmed Prescription Monitoring Program MEDICATIONS (INSTRUCTIONS) LAST TAKEN Active ??metoprolol succinate 25 mg tablet,extended release 24 hr ??25 mgPODAILY Allergies amoxicillin hives Problems External Data Available ? ONSET Dizziness Hypertension Brain cyst Hypertension 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 2 diabetes me llitus Encounter for annual routine gynecological examination 01/06/16 Urinary frequency Uterine fibroid Pelvic pressure in female Perimenopausal menorrhagia Vital Signs Today 09:15 Pulse 81? Resp 21? O2 Sat 97? Diagnostics Reports Lizett Adams??47??F??1975 ? Allergy/Adv: amoxicillin Close Head CT (Signed) Call,Tay - 05/20/23 Chest X-Ray (Signed) Call,Tay - 05/20/23 Pelvis Ultrasound (Signed) Cory Skinner - 12/10/22 Mammogram Screening (Signed) Lowell Palma - 07/23/22 Mammogram Screening (Signed) Cory Camejo - 06/25/21 Mammogram Screening (Signed) Cory Camejo - 06/05/20 Mammogram Screening (Addendum) David Garcia - 01/25/19 Launch?Image [address] [address] XRay Report Signed Patient: Lizett Adams MR#: [id number] : 1975 Acct:[id number] Age/Sex: 47 / F Date of Service: 05/20/23 Loc: ED Accession Number: [id number] ?? Procedure: XR chest 1V Ordering Provider: John Albarado MD PROCEDURE:? XR CHEST 1V ? INDICATIONS:? chest pain ? TECHNIQUE:? One view of the chest was acquired.? ? COMPARISON:? [facility], CT, CT CHEST W CON, 12/16/2022, 13:19.? [facility], CR, XR CHEST 2V, 11/23/2022, 10:47. ? FINDINGS:? ? Surgical changes and devices:? None.? ? Lungs and pleura:? Subtle left perihilar opacity.? No pleural effusions or pneumothorax.? ? ? Mediastinum:? Mediastinal contours appear unchanged.? Heart size is normal.? ? Bones and chest wall:? No suspicious bony lesions.? Overlying soft tissues appear unremarkable.? ? IMPRESSION:? Subtle left perihilar opacity.? This could be due to atelectasis or pneumonia. ? This report is concordant with the overnight preliminary interpretation. ? ? ? Dictated by: Tay Romo M.D. on 05/20/2023 at 8:01 ? ? Approved by: Tay Romo M.D. on 05/20/2023 at 8:03?? ECG Data Attestation: I personally reviewed and interpreted this ECG as follows: (Normal sinus rhythm rate 79 beats per minute. Normal intervals. No ectopy. No acute ST T wave changes.) Discharge Plan Departure Patient Disposition: Home Clinical Impression: Dizziness, Hypertension, Brain cyst Instructions: High Blood Pressure, DI for Dizziness-Nonvertigo Activity Restrictions/Additional Instructions: A small cyst was found in the brain CT, this is probably benign. Dr. Bower was contacted, anticipate an order for brain MRI. It is noted that your blood pressure is persistently high. You need additional management. Dr. Bower will address this also. There is no evidence of stroke, acute coronary event, or arrhythmia. There is no suggestive infection. Your workup was otherwise benign. Return here if symptoms return/escalate. Prescriptions: No Action metoprolol succinate 25 mg tablet extended release 24 hr 25 mg PO DAILY Referrals: Aga Bower MD [Primary Care Provider] - Stand Alone Forms: Patient Portal/API
[2023-05-20 07:29] LABS: Troponin I < 0.012 ng/mL (0.01-0.034)
== END 2023-05-20 09:54 | disposition home or self-care (01) ==
PROVIDERS: Emergency Medicine; Emergency Provider Emergency Medicine; PCP Family Medicine
DX: G93.0 Cerebral cysts (principal); I10 Essential (primary) hypertension; R42 Dizziness and giddiness; H53.8 Other visual disturbances
CPT/HCPCS: 36415; 70450; 71045; 80053; 82550; 83690; 83735; 84484; 85025; 85610; 85730; 93005; 99283; 99284

== ENCOUNTER → 2023-05-25 08:55 | Outpatient (CLI) | payer OTHER, SELFPAY ==
--- NOTE | 2023-05-25 | DI.MRI.S_ITS ---
PROCEDURE: MR HEAD/BRAIN WO CON INDICATIONS: Dizziness and giddiness TECHNIQUE: Noncontrast axial T1 spin echo, axial T2 fast spin echo, sagittal and axial FLAIR, coronal T2 fast spin echo, axial gradient echo, axial diffusion and ADC through the brain. COMPARISON: [facility], CT, CT HEAD/BRAIN WO CON, 05/20/2023, 6:51. FINDINGS: Image quality: Excellent. CSF Spaces: Basal cisterns are patent. No extra-axial fluid collections. Ventricles are normal in size and shape. Brain: No intracranial masses or hemorrhage. An extra-axial cyst is again seen posteriorly, as on series 8, image 9 and on series 6, image 9, measuring 7 mm. /white matter interface is normal. Brainstem appears normal. Diffusion-weighted images demonstrate no acute ischemic insult. No chronic ischemic insults. Normal intravascular flow voids are present. Skull and face: Calvarium has normal marrow signal. Orbits appear normal. Sinuses: Sinuses and mastoids are clear. IMPRESSION: No imaging explanation is found for this patient's presenting symptoms. Additional findings: Posterior extra-axial cyst, stable, 7 mm Dictated by: Marcell Geronimo M.D. on 05/25/2023 at 9:39 Approved by: Marcell Geronimo M.D. on 05/25/2023 at 9:41
== END ==
PROVIDERS: PCP Family Medicine; Referring Provider Family Medicine; Visit Provider Family Medicine
DX: G93.0 Cerebral cysts (principal); R42 Dizziness and giddiness; I10 Essential (primary) hypertension
CPT/HCPCS: 70551

== ENCOUNTER → 2023-08-09 14:48 | Outpatient (CLI) | payer OTHER, SELFPAY ==
--- NOTE | 2023-08-09 | DI.RAD.S_ITS ---
PROCEDURE: XR FOOT LT 2V INDICATIONS: FOOT PAIN TECHNIQUE: 3 views of the foot were acquired. COMPARISON: None. FINDINGS: Bones: No fractures or dislocations. No suspicious bony lesions. Soft tissues: No tibiotalar joint effusion. Achilles tendon appears normal. IMPRESSION: Unremarkable left foot radiographs Approved by: Adalberto Escudero M.D. on 08/09/2023 at 17:13
--- NOTE | 2023-08-09 | DI.RAD.S_ITS ---
PROCEDURE: XR FOOT RT 2V INDICATIONS: FOOT PAIN TECHNIQUE: 2 views of the foot were acquired. COMPARISON: None. FINDINGS: Bones: No fractures or dislocations. No suspicious bony lesions. Soft tissues: No tibiotalar joint effusion. Achilles tendon appears normal. IMPRESSION: Unremarkable two view right foot radiographs. Approved by: Adalberto Escudero M.D. on 08/09/2023 at 18:49
== END ==
PROVIDERS: PCP Family Medicine; Referring Provider Family Medicine; Visit Provider Family Medicine
DX: M79.672 Pain in left foot (principal); M79.671 Pain in right foot
CPT/HCPCS: 73620

== ENCOUNTER → 2023-09-13 17:03 | Outpatient (ROUT) | payer OTHER, SELFPAY ==
[2023-09-13 17:54] LABS: Progesterone, Total 0.88 ng/mL
[2023-09-13 18:10] LABS: Estradiol, Total 148.4 pg/mL
[2023-09-13 21:46] LABS: Testosterone 17.3 ng/dL (5.71-77.0)
== END ==
PROVIDERS: PCP Family Medicine; Visit Provider Family Medicine
DX: Z78.0 Asymptomatic menopausal state (principal)
CPT/HCPCS: 82670; 84144; 84403

== ENCOUNTER → 2023-10-28 15:58 | Outpatient (CLI) | payer OTHER, SELFPAY ==
--- NOTE | 2023-10-28 | DI.MG.S_ITS ---
BILATERAL DIGITAL SCREENING MAMMOGRAM 3D/2D WITH CAD: 10/28/2023 CLINICAL: Routine screening. Family history of breast cancer. Comparison is made to exams dated: 07/23/2022 mammogram, 06/25/2021 mammogram, and 06/05/2020 mammogram - [facility]. Both breasts are heterogeneously dense, which may obscure small masses (category c / 51-75% glandular tissue). Current study was also evaluated with a Computer Aided Detection (CAD) system. No significant masses, calcifications, or other findings are seen in either breast. There has been no significant interval change. IMPRESSION: NEGATIVE There is no mammographic evidence of malignancy. A 1 year screening mammogram is recommended. Based on Tyrer-Cuzick model (a risk assessment model), the patient's lifetime risk is 35.2% and her 10 year risk is 9.6%. If a patient has an elevated risk, a more comprehensive evaluation should be considered and/or a referral to a genetic counselor. The [place] [employer], [place] [employer], and NCCN Guidelines advise the consideration of Breast MRI as an adjunct to screening mammography in patients whose Lifetime risk to develop breast cancer is 20% or higher. This exam was interpreted at Station ID: [id number]. NOTE: For mammograms, a report in lay terms will be sent to the patient. Approximately 15% of breast malignancies will not be visualized mammographically. In the management of a palpable breast mass, a negative mammogram must not discourage biopsy of a clinically suspicious lesion. Electronically Signed By: Dk gunn/barak:10/29/2023 10:50:45 letter sent: Normal Exam ACR BI-RADS Category 1: Negative [id number]
== END ==
PROVIDERS: PCP Family Medicine; Referring Provider Family Medicine; Visit Provider Family Medicine
DX: Z12.31 Encounter for screening mammogram for malignant neoplasm of breast (principal); Z80.3 Family history of malignant neoplasm of breast
CPT/HCPCS: 77063; 77067

== ENCOUNTER → 2024-11-07 14:33 | Outpatient (CLI) | payer OTHER, SELFPAY ==
--- NOTE | 2024-11-07 14:36 | DI.MG.S_ITS ---
BILATERAL DIGITAL SCREENING MAMMOGRAM 3D/2D WITH CAD: 11/07/2024 CLINICAL: Routine screening. Family history of breast cancer. Comparison is made to exams dated: 10/28/2023 mammogram, 07/23/2022 mammogram, and 06/25/2021 mammogram - [facility]. The breasts are heterogeneously dense, which may obscure small masses (category c / 51-75% glandular tissue). Current study was also evaluated with a Computer Aided Detection (CAD) system. No significant masses, calcifications, or other findings are seen in either breast. There has been no significant interval change. IMPRESSION: NEGATIVE There is no mammographic evidence of malignancy. A 1 year screening mammogram is recommended. Based on Tyrer-Cuzick model (a risk assessment model), the patient's lifetime risk is 34.9% and her 10 year risk is 9.9%. If a patient has an elevated risk, a more comprehensive evaluation should be considered and/or a referral to a genetic counselor. The [place] [employer], [employer], and NCCN Guidelines advise the consideration of Breast MRI as an adjunct to screening mammography in patients whose Lifetime risk to develop breast cancer is 20% or higher. This exam was interpreted at Station ID: [id number]. NOTE: For mammograms, a report in lay terms will be sent to the patient. Approximately 15% of breast malignancies will not be visualized mammographically. In the management of a palpable breast mass, a negative mammogram must not discourage biopsy of a clinically suspicious lesion. Electronically Signed By: Jose Luis reyez/barak:11/07/2024 20:30:02 letter sent: Normal Exam ACR BI-RADS Category 1: Negative
== END ==
PROVIDERS: PCP Family Medicine; Referring Provider Family Medicine; Visit Provider Family Medicine
DX: Z12.31 Encounter for screening mammogram for malignant neoplasm of breast (principal); Z80.3 Family history of malignant neoplasm of breast; R92.333 Mammographic heterogeneous density, bilateral breasts
CPT/HCPCS: 77063; 77067

== ENCOUNTER 2025-01-25 16:04 | Emergency (ER) | payer OTHER, SELFPAY ==
[2025-01-25] VITALS (22 sets, daily range): BP systolic 153–203; BP diastolic 80–104; PULSE 59–82; RESP 16–28; TEMP 36.1; O2SAT 89–100; BMI 29.9
--- NOTE | 2025-01-25 16:11 | DI.RAD.S_ITS ---
PROCEDURE: XR FOREARM LT 2V INDICATIONS: deformed wrist TECHNIQUE: 2 views of the forearm were acquired. COMPARISON: None. FINDINGS AND IMPRESSION: Moderate displaced and impacted distal radius fracture. Volar angulation. Mildly displaced ulnar styloid fracture. Surrounding soft tissue swelling. Dictated by: Lowell Palma M.D. on 01/25/2025 at 16:36 Approved by: Lowell Palma M.D. on 01/25/2025 at 16:37
--- NOTE | 2025-01-25 16:11 | DI.RAD.S_ITS ---
PROCEDURE: XR WRIST LT MIN 3V INDICATIONS: deformed wrist TECHNIQUE: 3 views of the wrist were acquired. COMPARISON: None. FINDINGS AND IMPRESSION: Moderately impacted and displaced fracture of the distal radius with comminution. Ulnar styloid fracture also present. Traumatic positive ulnar variance. Surrounding soft tissue swelling. Dictated by: Lowell Palma M.D. on 01/25/2025 at 16:38 Approved by: Lowell Palma M.D. on 01/25/2025 at 16:39
[2025-01-25] MEDS: HYDROMORPHONE 0.5 MG INJ IV (17:15)
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
--- NOTE | 2025-01-25 21:17 | DI.RAD.S_ITS ---
PROCEDURE: XR WRIST LT 2V INDICATIONS: post reductions TECHNIQUE: 2 views of the wrist were acquired. COMPARISON: [facility], CR, XR WRIST LT MIN 3V, 01/25/2025, 16:09. FINDINGS: Bones: Interval casting partially obscures the fine osseous and soft tissue detail. Redemonstration of comminuted distal radial fracture and improved alignment compared to prior.. Soft tissues: No suspicious soft tissue calcifications. IMPRESSION: Improved alignment of distal radial comminuted fracture status post reduction and casting. Approved by: Marycarmen Nicole M.D.,Ph.D. on 01/25/2025 at 22:11
[2025-01-25] MEDS: propofoL 200 MG/20 ML VIAL 80 MG IV (21:37)
[2025-01-25] MEDS: OXYCODONE/APAP 5/325 PREPACK 1 BOTTLE MISC (22:08)
[2025-01-25] MEDS: ONDANSETRON 4 MG ODT PREPACK 1 BOTTLE MISC (22:08)
== END 2025-01-25 23:00 | disposition home or self-care (01) ==
PROVIDERS: Emergency Provider Student in an Organized Health Care Education/Training Program; PCP Family Medicine
DX: S52.502A Unspecified fracture of the lower end of left radius, initial encounter for closed fracture (principal); S52.612A Displaced fracture of left ulna styloid process, initial encounter for closed fracture; W01.0XXA Fall on same level from slipping, tripping and stumbling without subsequent striking against object, initial encounter
CPT/HCPCS: 25605; 73090; 73100; 73110; 96374; 99152; 99284; J1171; J2704

== ENCOUNTER → 2025-02-26 14:23 | Outpatient (ROUT) | payer OTHER, SELFPAY ==
[2025-02-26 14:33] LABS: Add Manual Diff / Slide Review NO; Basophils Absolute Auto 0 /uL (0-100); Basophils Percent Auto 0.8 % (0-2); Eosinophils Absolute Auto 100 /uL (0-450); Eosinophils Percent Auto 1.8 % (2-4); Hematocrit 41.7 % (36-46); Hemoglobin 13.7 g/dL (12.0-16.0); Lymphocytes Absolute Auto 2200 /uL (1100-4500); Lymphocytes Percent Auto 36.8 % (25-40); Mean Corpuscular HGB Conc 32.9 % (30-36); Mean Corpuscular Hemoglobin 31.3 PG (26-34); Mean Corpuscular Volume 95.2 fL (80-100); Monocytes Absolute Auto 400 /uL (0-900); Monocytes Percent Auto 7.2 % (3-14); Neutrophils Absolute Auto 3200 /uL (1500-7000); Neutrophils Percent Auto 53.4 % (50-75); Platelet Count 270 X10^3/uL (150-400); Red Blood Cell Count 4.38 X10^6/uL (4.0-5.2); Red Cell Distribution Width 14.3 % (11.6-14.8); White Blood Cell Count 6.1 X10^3/uL (4.5-11.0)
[2025-02-26 14:49] LABS: Alanine Aminotransferase 27 IU/L (<35); Albumin 4.5 g/dL (3.5-5.0); Albumin Globulin Ratio 1.6 (1.0-2.8); Alkaline Phosphatase 63 U/L (38-126); Aspartate Aminotransferase 35 IU/L (14-36); BUN Creatinine Ratio 24.2 (6-22); Bilirubin Total 0.7 mg/dL (0.2-1.3); Blood Urea Nitrogen 16 mg/dL (7-17); Calcium 9.1 mg/dL (8.4-10.2); Carbon Dioxide 26 mmol/L (22-32); Chloride 103 mmol/L (98-107); Cholesterol 209 mg/dL (140-199); Estimated Glomerular Filt Rate > 60 mL/min (>60); Globulin 2.8 g/dL (1.7-4.1); Glucose 78 mg/dL (70-100); HDL Cholesterol 56 mg/dL (40-60); HEMOLYSIS < 15 (0-50); LDL Cholesterol Calculated 126 mg/dL (<100); Sodium 138 mmol/L (137-145); Total Protein 7.3 g/dL (6.3-8.2); Triglycerides 136 mg/dL (35-150)
[2025-02-26 14:55] LABS: Hemoglobin A1C% w Est Avg Glu 5.3 % (4.0-6.0)
[2025-02-26 15:04] LABS: Vitamin D 25 Hydroxy (D3) 32.1 ng/mL (30.0-100.0)
[2025-02-26 15:20] LABS: Thyroid Stimulating Hormone 2.39 uIU/mL (0.47-4.68)
== END ==
PROVIDERS: PCP Family Medicine; Visit Provider Family Medicine
DX: Z00.00 Encounter for general adult medical examination without abnormal findings (principal); I10 Essential (primary) hypertension
CPT/HCPCS: 80053; 80061; 82306; 83036; 84443; 85025

== ENCOUNTER 2025-09-04 22:29 | Emergency (ER) | payer OTHER, SELFPAY ==
[2025-09-04 22:34] VITALS: BP 158/100; PULSE 87; RESP 18; TEMP 36.6; O2SAT 97; BMI 29.9
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
[2025-09-05] MEDS: BACITRACIN OINT 0.9 GM PCKT 1 APPLIC TOP (02:12)
[2025-09-05 02:15] VITALS: BP 174/92; PULSE 78; RESP 16; O2SAT 96
== END 2025-09-05 02:16 | disposition home or self-care (01) ==
PROVIDERS: Emergency Provider Family Medicine; PCP Family Medicine
DX: M79.602 Pain in left arm (principal); M79.661 Pain in right lower leg; H01.004 Unspecified blepharitis left upper eyelid; V43.92XA Unspecified car occupant injured in collision with other type car in traffic accident, initial encounter; Y92.410 Unspecified street and highway as the place of occurrence of the external cause
CPT/HCPCS: 70450; 73090; 93971; 99283; 99284